=== PATIENT | male | born 1955 | race Caucasian/White ===

== ENCOUNTER 2022-01-14 14:16 | Day surgery (SDC) | payer OTHER ==
[2012-03-04 08:47] VITALS: BP 114/68
[2022-01-14] MEDS ORDERED: Sodium Chloride 0.9(Preservative Free) 10 ML IJ ONE (14:17)
[2022-01-14] MEDS ORDERED: Depo-Medrol 40 MG/ML IM ONE (14:17)
[2022-01-14] MEDS ORDERED: Lactated Ringers 1,000 ML IV ONE (14:47)
[2022-01-14] MEDS ORDERED: DIPRIVAN 200 MG/20 ML IV ONE (15:47)
--- NOTE | 2022-01-14 18:21 | XRAY ---
Indication: Right L3-L5 transforaminal MELE. Intraoperative fluoroscopy provided for 22 seconds. 3 digital spot image submitted for interpretation demonstrates posterior needle tips projecting over the expected right L3 and L4 nerve roots. Small amount of contrast injected for needle tip placement. Correlate with intraoperative findings/report.
--- NOTE | 2022-01-15 09:53 | XRAY ---
22 seconds of fluoroscopy was used in surgery for a right L3-L5 transforaminal MELE.
== END 2022-01-14 16:20 | disposition home or self-care (01) ==
LOC: SDC-PAIN 14:16
PROVIDERS: ATTEND Psychiatry & Neurology Pain Medicine
DX: M54.16 Radiculopathy, lumbar region (principal); Z79.899 Other long term (current) drug therapy
CPT/HCPCS: 64483; 64484; 72100; 77003; J1030; J2704; Q9966

== ENCOUNTER 2022-02-25 13:45 | Day surgery (SDC) | payer OTHER ==
[2012-03-04 08:47] VITALS: BP 114/68
[2022-02-25] MEDS ORDERED: Sodium Chloride 0.9(Preservative Free) 10 ML IJ ONE (13:46)
[2022-02-25] MEDS ORDERED: Depo-Medrol 40 MG/ML IM ONE (13:46)
[2022-02-25] MEDS ORDERED: BUPIVACAINE 0.5% VIAL IJ ONE (13:46)
[2022-02-25] MEDS ORDERED: APRESOLINE 20 MG/ML INJ IV ONE (14:55)
[2022-02-25] MEDS ORDERED: APRESOLINE 20 MG/ML INJ ONE (15:00)
[2022-02-25] MEDS ORDERED: DIPRIVAN 200 MG/20 ML IV ONE (16:23)
[2022-02-25] MEDS ORDERED: Lactated Ringers 1,000 ML IV ONE (16:49)
--- NOTE | 2022-02-25 16:52 | XRAY ---
Indication: Right L3-L5 transforaminal MELE. Intraoperative fluoroscopy provided for 25 seconds. 4 digital spot image submitted for interpretation demonstrates posterior needle tips projecting over the expected right L3 and L4 nerve roots. Small amount of contrast injected for needle tip placement. Correlate with intraoperative findings/report.
--- NOTE | 2022-02-25 16:53 | XRAY ---
Indication: Right SI joint injection. Intraoperative fluoroscopy provided for 9 seconds. 2 digital spot image submitted for interpretation demonstrates posterior needle tip projecting over the right SI joint. Correlate with intraoperative findings/report.
[2022-02-25] MEDS ORDERED: MORPHINE SULFATE 2 MG INJ ONE (16:54)
--- NOTE | 2022-02-25 16:58 | XRAY ---
9 seconds of fluoroscopy was used in surgery for a right SI joint injection.
--- NOTE | 2022-02-25 16:58 | XRAY ---
23 seconds of fluoroscopy was used in surgery for a right L3-L5 transforaminal MELE.
== END 2022-02-25 17:00 | disposition home or self-care (01) ==
LOC: SDC-PAIN 13:45
PROVIDERS: ATTEND Psychiatry & Neurology Pain Medicine
DX: M54.16 Radiculopathy, lumbar region (principal); M46.1 Sacroiliitis, not elsewhere classified; Z79.899 Other long term (current) drug therapy
CPT/HCPCS: 01992; 27096; 64483; 64484; 72100; 72170; 77002; 77003; G0260; J0360; J1030; J2270; J2704; Q9966

== ENCOUNTER 2022-04-16 10:45 | Day surgery (SDC) | payer OTHER ==
[2012-03-04 08:47] VITALS: BP 114/68
[2022-04-16] MEDS ORDERED: LIDOCAINE HCL 1% 50 MG/5 ML VL PF IJ ONE (10:46)
[2022-04-16] MEDS ORDERED: LIDOCAINE HCL 2% 100 MG/5 ML IJ ONE (10:46)
[2022-04-16] MEDS ORDERED: Hydromorphone 1 mg/ml Injection ONE (12:16)
[2022-04-16] MEDS ORDERED: DIPRIVAN 200 MG/20 ML IV ONE (12:25)
[2022-04-16] MEDS ORDERED: Lactated Ringers 1,000 ML IV ONE (13:30)
--- NOTE | 2022-04-16 13:30 | XRAY ---
Indication: Bilateral L4-S1 MBB. Intraoperative fluoroscopy provided for 8 seconds. Single digital spot image submitted for interpretation demonstrates posterior needle tips projecting over the expected left and right L4-S1 nerve roots. Correlate with intraoperative findings/report.
--- NOTE | 2022-04-16 13:41 | XRAY ---
8 seconds fluoroscopy time in surgery for bilateral L4-S1 MBB.
== END 2022-04-16 12:47 | disposition home or self-care (01) ==
LOC: SDC-PAIN 10:45
PROVIDERS: ATTEND Psychiatry & Neurology Pain Medicine
DX: M47.816 Spondylosis without myelopathy or radiculopathy, lumbar region (principal); Z79.899 Other long term (current) drug therapy
CPT/HCPCS: 64493; 64494; 72020; 77002; J1170; J2001; J2704